=== PATIENT | female | born 1965 | race Caucasian/White ===

== ENCOUNTER 2025-02-14 09:15 | Emergency (ER) | payer MEDICAID, OTHER ==
[~2025-02-14] VITALS: Ht 162.6 cm; Wt 57.5 kg
--- NOTE | 2025-02-14 09:35 | Physician Documentation ---
History of Present Illness ~ Chief Complaint: Mechanical Fall Stated Complaint: FALL/RT CLAVICLE PAIN Time Seen by MD: 09:16 OK to notify your PCP?: Yes Source: patient Mode of Arrival: POV Exam Limitations: no limitations HPI Patient reports that she slipped and fell last night on her wood floor and landed on her right shoulder. She reports that there is a crackly feeling to her right clavicle as well. No prior injuries to the side. No head strike or loss of consciousness. She took Tylenol 1 hour prior to arrival. Patient has right arm in homemade sling on arrival. Medication Reconciliation Allergies: Uncoded Allergies: SULFA (Allergy, Unknown, 02/14/25) Past Medical History Past Medical History: No Pertinent History Review of Systems All Other Systems at this time: Reviewed and Negative Physical Exam Vital Signs: RN Vital Signs have been reviewed: Yes, Temperature: 97.3, Source: Temporal, Heart Rate: 110, Respiratory Rate: 15, BP: 112/81, Pulse Oximetry: 99, Weight: 57.500 Pulse Oximetry Reflects: adequate oxygenation Physical Exam General: Alert, no apparent distress. HEENT: PERRL, EOMI, no injection, moist mucous membranes. Neck: Full range of motion. Respiratory: Lungs clear, no respiratory distress. Chest: No accessory muscle use. Cardiovascular: Regular rate and rhythm, no murmurs. Gastrointestinal: Soft, nontender, nondistended. Bowels sounds present. Extremities: Edema and bruising over right clavicle and shoulder. Edema to light palpation. Limited range motion of right shoulder due to pain. Good pulses, good sensation in right arm. Neurologic: Oriented x4. Psychiatric: Normal mood and affect. Skin: Normal color, warm and dry. No edema, no ecchymosis. Progress Results/Orders Reviewed/noted all lab results: Yes Results/Orders Orders - ROSALBA LUNAP Shoulder, Complete (Min 2 Vws) (02/14/25 09:40) Completed Orders - ROSALBA LUNAP Shoulder, Complete (Min 2 Vws) (02/14/25 09:40) Ibuprofen Tablet (Motrin Tablet) (02/14/25 09:35) Medications Received in ER Medications (Trade) Dose Ordered Sig/Michelle Route PRN Reason Start Time Stop Time Status Last Admin Dose Admin (Motrin tablet) 800 mg ONCE ONCE PO 02/14/25 09:35 02/14/25 09:36 DC 02/14/25 09:47 800 MG Vital Signs 02/14/25 09:20 Temp 97.3 Pulse 110 Resp 15 B/P (MAP) 112/81 Pulse Ox 99 EKG/XRAY/CT/US/VASC/MRI Bone/Soft Tissue X-Ray (Ext.) : Additional Comment Right shoulder x-ray as interpreted by me; no joint effusion, or foreign body. Comminuted right mid clavicular fracture. Marked inferior displacement of the distal fracture fragment. Acromioclavicular joint intact. Humerus proximally appears intact. Medical Decision Making Additional information obtaine: family Findings Patient reports it has been and falling and landing on her right shoulder and clavicle. Patient took Tylenol 1 hour prior to arrival. Patient requesting not have anything stronger than Tylenol. Patient given 800 mg ibuprofen while in the department. Physical exam reveals edema and bruising over right clavicle and shoulder with tenderness to light palpation. X ray reveals: Comminuted right mid clavicular fracture. Marked inferior displacement of the distal fracture fragment. Acromioclavicular joint intact. No fractures of the 1st or 2nd ribs. Humerus proximally appears intact. We have placed this patient in a sling and provided her with discharge instructions as well as follow up instructions. There is no indication for immediate surgery there was no tenting of the skin or brachial plexus injury. Patient provided with a 5 day work note. Differential Dx:Considerations: Include: Vascular injury, Contusion(s), Hematoma(s) Departure Disposition: 01 HOME / SELF CARE / HOMELESS Impression: Primary Impression: Fracture, clavicle closed, shaft Condition: Stable Discharge Instructions: Clavicle Fracture, [id number] Additional Instructions: See your primary care provider or walk-in clinic to obtain a referral to Orthopedics within the next week. Your X ray shows: Comminuted right mid clavicular fracture. Marked inferior displacement of the distal fracture fragment. Acromioclavicular joint intact. No fractures of the 1st or 2nd ribs. Humerus proximally appears intact. Please continue to wear the sling, rest, ice for 20 minutes on 20 minutes off for the next 48 hours and that alternate ice and heat, use Tylenol and/or ibuprofen for pain relief. Return back here for any new or worsening symptoms. Referrals: NO PRIMARY CARE PROVIDER (PCP) FARA LANGLEY Education Educated: Patient Educated regarding: diagnosis, treatment, prognosis, need for follow up Additional Comment Medical Screen Exam This patient recieved a medical screening examination. After reviewing the individual's medical complaints with presenting symptoms and performing an appropriate physical examination, it was determined that no immediate life- threatening emergency medical condition is present. This individual is also not a women having contractions. Signature Scribe Signature: . Attestation: Scribed for Rosalba Lunap by Rosalba Haywood NP . 02/14/25 10:09 Parts of this note were created using [employer] voice recognition software program. While efforts were made to correct any mistakes made by this voice recognition software program, nonsensical phrases may remain in this note. In addition, there may be errors and syntax, grammar, content and spelling. ROSALBA LUNAP Feb 14, 2025 09:35
[2025-02-14] MEDS: ibuprofen tablet 400 MG TABLET PO ONE (09:47)
--- NOTE | 2025-02-14 09:49 | RADIOLOGY REPORT ---
CLINICAL INDICATION: Shoulder Pain TECHNIQUE: 2-view DI SHOULDER, COMPLETE (MIN 2 VWS) COMPARISON: None FINDINGS/IMPRESSION: : Comminuted right mid clavicular fracture. Marked inferior displacement of the distal fracture fragment. Acromioclavicular joint intact. No fractures of the 1st or 2nd ribs. Humerus proximally appears intact.
[2025-02-14 10:18] VITALS: BP 133/76; PULSE 95; RESP 16; TEMP 97.3; O2SAT 98
== END 2025-02-14 10:16 | disposition home or self-care (01) ==
LOC: ER 09:17
DX: S42.021A Displaced fracture of shaft of right clavicle, initial encounter for closed fracture (principal); W01.198A Fall on same level from slipping, tripping and stumbling with subsequent striking against other object, initial encounter; Y93.89 Activity, other specified; Y92.89 Other specified places as the place of occurrence of the external cause; Y99.8 Other external cause status
CPT/HCPCS: 73030; 99283; A4565